=== PATIENT | male | born 1960 | race Caucasian/White ===

== ENCOUNTER 2017-07-29 11:22 | Emergency (ER) | payer SELFPAY ==
[~2017-07-29] VITALS: Ht 193 cm; Wt 127.9 kg
[~2017-07-29 11:22] MED LIST: LOSA100T PO; PIRO10CA PO; PRAV40TA2 PO
[2017-07-29 11:29] VITALS: BP 165/72; PULSE 89; RESP 16; TEMP 97.9; O2SAT 97
[2017-07-29] MEDS ORDERED: CLIN1CAP5 PO (11:42)
[2017-07-29] MEDS ORDERED: MUPI2%T TOPICAL (11:42)
[2017-07-29] MEDS ORDERED: statin (11:45)
[2017-07-29] MEDS ORDERED: CLINDAMYCIN PHOS 600 MG/4 ML VIAL IM ONE (11:45)
[2017-07-29] MEDS ORDERED: LOSA100T PO (11:45)
--- NOTE | 2017-07-29 11:48 | PD ---
HPI Chief Complaint: Skin Problem Time Seen by Provider: 11:34 Travel History International Travel<30 days: No Contact w/Intl Traveler<30days: No Traveled to known affect area: No History of Present Illness HPI 56-year-old male presents the emergency Department with multiple insect bites with localized erythema, and specifically his right elbow has developed increasing erythema and induration and warmth. He has mild tenderness in this area. Range of motion is full. There is no active drainage or bleeding. He denies fever, chills, numbness, tingling. Patient has history of MRSA in the distant past, and states in the past 6 months every insect bite or scratch she gets tends to get a pus filled pocket. His pain currently is approximately 3 out of 10. It is worse with palpation. He is allergic to sulfa. PFSH Past Medical History Cardiovascular Problems: Yes (htn on meds) Social History Alcohol Use: Yes Tobacco Use: No Substance Use: No Allergies-Medications (Allergen,Severity, Reaction): Coded Allergies: sulfamethoxazole (Unverified Allergy, Unknown, unknown, 07/29/17) trimethoprim (Unverified Allergy, Unknown, unknown, 07/29/17) Reported Meds & Prescriptions Reported Meds & Active Scripts Active Bactroban Topical (Mupirocin) 22 Gm Cream 1 Applic TOPICAL BID Clindamycin (Clindamycin HCl) 150 Mg Cap 300 Mg PO Q6H 10 Days Reported [statin] Losartan (Losartan Potassium) 100 Mg Tab 100 Mg PO DAILY Review of Systems Except as stated in HPI: all other systems reviewed are Neg General / Constitutional: No: Fever, Chills Eyes: No: Visual changes HENT: No: Headaches Cardiovascular: No: Chest Pain or Discomfort Respiratory: No: Shortness of Breath Gastrointestinal: No: Abdominal Pain Genitourinary: No: Dysuria Musculoskeletal: No: Pain Skin: Positive Lesions, No Rash Neurologic: No: Weakness Psychiatric: No: Depression Endocrine: No: Polydipsia Hematologic/Lymphatic: No: Easy Bruising Physical Exam Narrative GENERAL: Patient is in no acute distress. SKIN: Warm and dry. Normal color. Normal turgor. Patient has multiple insect bites with localized erythema to the left thigh, and right posterior elbow. The area of the elbow shows an area of erythema and induration measuring approximate 6 cm in diameter without obvious signs of septic bursitis or abscess. HEAD: Atraumatic. Normocephalic. EYES: Pupils equal and round. No scleral icterus. No injection or drainage. ENT: No nasal bleeding or discharge. Mucous membranes pink and moist. Pharynx is clear. Airway is patent. NECK: Trachea midline. Supple and nontender. CARDIOVASCULAR: Regular rate and rhythm. RESPIRATORY: No accessory muscle use. Clear to auscultation. Breath sounds equal bilaterally. MUSCULOSKELETAL: Extremities without clubbing, cyanosis, or edema. No obvious deformities. Range of motion is full in the right upper extremity. No other significant findings noted. NEUROLOGICAL: Awake and alert. No obvious cranial nerve deficits. Motor grossly within normal limits. Five out of 5 muscle strength in the arms and legs. Normal speech. PSYCHIATRIC: Appropriate mood and affect; insight and judgment normal. Data Data Last Documented VS Vital Signs Date Time Temp Pulse Resp B/P (MAP) Pulse Ox O2 Delivery O2 Flow Rate FiO2 07/29/17 11:29 97.9 89 16 165/72 (103) 97 Orders Orders Clindamycin Inj (Cleocin Inj) (07/29/17 11:45) MDM Medical Decision Making Medical Screen Exam Complete: Yes Emergency Medical Condition: Yes Differential Diagnosis Cellulitis. Infected insect bite. MRSA. Possible early septic bursitis on the right elbow. Narrative Course Patient is medically stable at time of exam. Patient is given 600 mg clindamycin IM. Patient continued on clindamycin 300 mg 4 times a day for the next 10 days. Patient is given a prescription for mupirocin ointment 2% to be used twice a day to any scratch or insect bite in the future. Patient take Tylenol and ibuprofen as needed for discomfort. Patient is instructed to limit his activity with the right arm for the next several days. Patient follow up with symptoms do not improve in the next 24-48 hours as discussed. 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 Patient continued on clindamycin 300 mg 4 times a day for the next 10 days. Patient is given a prescription for mupirocin ointment 2% to be used twice a day to any scratch or insect bite in the future. Patient take Tylenol and ibuprofen as needed for discomfort. Patient is instructed to limit his activity with the right arm for the next several days. Patient follow up with symptoms do not improve in the next 24-48 hours as discussed. Med/Other Pt SpecificInfo: Prescription(s) given Scripts Mupirocin Topical (Bactroban Topical) 22 Gm Cream 1 APPLIC TOPICAL BID for Mgmt Bacterial Infection, #1 TUBE 1 Refill Prov: Phoenix Asher MD 07/29/17 Clindamycin (Clindamycin) 150 Mg Cap 300 MG PO Q6H for Infection for 10 Days, #80 CAP 1 Refill Prov: Phoenix Asher MD 07/29/17 Disposition: 01 DISCHARGE HOME Condition: Stable Romaine Ortiz Jul 29, 2017 11:48
== END 2017-07-29 12:19 | disposition home or self-care (01) ==
LOC: PHEFT 11:22
DX: L03.113 Cellulitis of right upper limb (principal); Z22.322 Carrier or suspected carrier of Methicillin resistant Staphylococcus aureus
CPT/HCPCS: 96372